=== PATIENT | female | born 1975 | race Two or more races ===

== ENCOUNTER 2020-03-27 13:27 | Emergency (ER) | payer MEDICAID ==
[~2020-03-27] VITALS: Ht 162.6 cm; Wt 110.0 kg
--- NOTE | 2020-03-27 14:02 | NUR ---
AWAKE OVERNIGHT MONITOR: PT TO ROOM FROM AGNIES[facility] COOPER
--- NOTE | 2020-03-27 14:09 | NUR ---
PT BROUGHT BACK FROM TRIAGE WITH CHIEF COMPLAINT OF FACIAL TINGLING AND CHEST PAIN. SINCE LAST NIGHT.
--- NOTE | 2020-03-27 14:27 | NUR ---
pt to imaging
[2020-03-27 14:43] LABS: BASOPHILS # (AUTO) 0.08 x10^3/uL (0-0.1); BASOPHILS % (AUTO) 1 % (0-1); EOSINOPHILS # (AUTO) 0.27 x10^3/uL (0-0.4); EOSINOPHILS % (AUTO) 3 % (1-7); LYMPHOCYTES # (AUTO) 3.32 x10^3/uL (1-3.4); LYMPHOCYTES % (AUTO) 32 % (22-44); MD NO; MEAN CORPUSCULAR HEMOGLOBIN 29.9 pg (27.0-34.8); MEAN CORPUSCULAR HGB CONC 32.7 g/dL (32.4-35.8); MEAN CORPUSCULAR VOLUME 91.5 fL (80-100); MEAN PLATELET VOLUME 7.6 fL (7.4-10.4); MONOCYTES # (AUTO) 0.66 x10^3/uL (0.2-0.8); MONOCYTES % (AUTO) 6 % (2-9); NEUTROPHILS # (AUTO) 6.18 x10^3/uL (1.8-6.8); NEUTROPHILS % (AUTO) 59 % (42-75); PLATELET COUNT 420 x10^3/uL (130-400); RED BLOOD COUNT 4.32 x10^6/uL (3.82-5.3); RED CELL DISTRIBUTION WIDTH 13.4 % (9.6-15.2)
[2020-03-27 14:48] LABS: ALBUMIN 3.1 g/dL (3.4-5.0); ANION GAP 7 mmol/L (5-15); CALCIUM 8.6 mg/dL (8.5-10.1); CHLORIDE 111 mmol/L (98-107)
[2020-03-27 14:55] LABS: ALANINE AMINOTRANSFERASE 42 U/L (12-78); ALKALINE PHOSPHATASE 44 U/L (45-117); BILIRUBIN,TOTAL 0.3 mg/dL (0.2-1.0); CREATININE 0.85 mg/dL (0.55-1.02); TOTAL PROTEIN 7.6 g/dL (6.4-8.2); TROPONIN I < 0.015 ng/mL (0.000-0.045)
[2020-03-27 15:03] VITALS: BP 156/94
[2020-03-27] MEDS ORDERED: MORPHINE SULFATE 4 MG/ML, 1ML ONE (15:03)
--- NOTE | 2020-03-27 15:13 | NUR ---
yessi in room for reeval. as
== END 2020-03-27 16:25 | disposition home or self-care (01) ==
LOC: ED 14:22
DX: R07.89 Other chest pain (principal); F43.0 Acute stress reaction; M54.9 Dorsalgia, unspecified
CPT/HCPCS: 36415; 71046; 80053; 82330; 84484; 85025; 93005; 99285